=== PATIENT | male | born 2000 | race Caucasian/White ===

== ENCOUNTER 2022-02-08 18:11 | Emergency (ER) | payer MEDICAID ==
[~2022-02-08] VITALS: Ht 182.9 cm; Wt 59.0 kg
--- NOTE | 2022-02-08 19:20 | NUR ---
RECEIVED REPORT FROM FRANCESCO FUENTES. PATIENT IS HERE BECAUSE HE LOCKED HIMSELF FROM FRIENDS/FAMILY FOR MONTHS. HE DOES NOT WANT TO COMMUNICATE WITH ANYBODY. HE CAME FROM [facility]. PATIENT IS AAOX4, AMBULATORY, ABLE TO MAKE NEEDS KNOWN. PATIENT IS IN ROOM. VITALS CHECKED.
--- NOTE | 2022-02-08 19:25 | NUR ---
PER TRIAGE NURSE PATIENT HAS EPISODES OF BLACKOUT ON THAT 2 MONTHS PERIOD.
--- NOTE | 2022-02-08 19:28 | NUR ---
URINE SPECIMEN SENT TO LAB
--- NOTE | 2022-02-08 19:32 | NUR ---
LYE TREATER AT BEDSIDE
[2022-02-08 19:52] LABS: BASOPHILS # (AUTO) 0.1 K/uL (0.0-0.2); BASOPHILS % (AUTO) 0.8 % (0.0-2.0); EOSINOPHILS % (AUTO) 4.5 % (0.0-6.0); HEMATOCRIT 42 % (39-51); HEMOGLOBIN 13.9 g/dL (13.5-17.5); LYMPHOCYTES # (AUTO) 2.6 K/uL (0.8-4.8); LYMPHOCYTES % (AUTO) 30.5 % (20.0-44.0); MEAN CORPUSCULAR HGB CONC 33 g/dl (31.0-36.0); MEAN CORPUSCULAR VOLUME 88 fL (80-96); MONOCYTES # (AUTO) 0.9 K/uL (0.1-1.30); NEUTROPHILS # (AUTO) 4.6 K/uL (1.8-8.9); NEUTROPHILS % (AUTO) 54.2 % (43.0-81.0); PLATELET COUNT (AUTO) 225 K/uL (150-450); RED BLOOD CELL COUNT(AUTO) 4.78 MIL/uL (4.5-6.0); WHITE BLOOD COUNT (AUTO) 8.6 K/uL (4.3-11.0)
[2022-02-08 19:59] LABS: BILIRUBIN,TOTAL 0.2 mg/dL (0.2-1.0); CALCIUM, SERUM 9.2 mg/dL (8.5-10.1); CREATININE 0.9 mg/dL (0.6-1.3); MAGNESIUM 2.3 mg/dL (1.8-2.4); POTASSIUM 4.2 mmol/L (3.5-5.1); TOTAL PROTEIN, SERUM 6.9 g/dL (6.4-8.2)
--- NOTE | 2022-02-08 21:00 | NUR ---
Patient discharged to home in stable condition. Written and verbal after care instructions given. Patient verbalizes understanding of instruction.
[2022-02-09 03:44] VITALS: BP 128/85
== END 2022-02-08 21:00 | disposition home or self-care (01) ==
LOC: ER 18:15
DX: R55 Syncope and collapse (principal); F32.A Depression, unspecified; F41.9 Anxiety disorder, unspecified
CPT/HCPCS: 36415; 70450-TC; 71045-TC; 80053-TC; 83735-TC; 84484-TC; 85025-TC

== ENCOUNTER 2022-08-17 12:36 | Emergency (ER) | payer MEDICAID ==
--- NOTE | 2022-08-17 13:01 | NUR ---
CALLED TO TRIAGE, NO RESPONSE
--- NOTE | 2022-08-17 13:16 | NUR ---
CALLED TO TRIAGE, NO RESPONSE
--- NOTE | 2022-08-17 13:47 | NUR ---
CALLED TO TRIAGE, NO ANSWER
--- NOTE | 2022-08-17 13:58 | NUR ---
PT LEFT WITHOUT BEING TRIAGED.
== END 2022-08-17 13:59 | disposition home or self-care (01) ==
LOC: ER 12:42
DX: Z53.21 Procedure and treatment not carried out due to patient leaving prior to being seen by health care provider (principal)

== ENCOUNTER 2024-06-21 01:18 | Emergency (ER) | payer MEDICAID, OTHER ==
[~2024-06-21] VITALS: Ht 182.9 cm; Wt 79.4 kg
[2024-06-21 01:23] VITALS: BP 126/73; TEMP 98; O2SAT 98
== END 2024-06-21 01:40 ==
LOC: ER 01:19
DX: F31.9 Bipolar disorder, unspecified; F32.A Depression, unspecified; F41.9 Anxiety disorder, unspecified